=== PATIENT | male | born 1990 | race Caucasian/White ===

== ENCOUNTER 2017-07-08 15:03 | Emergency (ER) | payer OTHER | END 2017-07-08 15:41 | disposition home or self-care (01) | LOC: ERS 15:03 | DX: Z04.1 Encounter for examination and observation following transport accident (principal); F17.210 Nicotine dependence, cigarettes, uncomplicated; I10 Essential (primary) hypertension; V48.5XXA Car driver injured in noncollision transport accident in traffic accident, initial encounter | CPT/HCPCS: 99283 ==